=== PATIENT | female | born 1965 | race Caucasian/White ===

== ENCOUNTER 2017-03-13 18:25 | Emergency (ER) | payer SELFPAY ==
[~2017-03-13] VITALS: Ht 170.2 cm; Wt 90.5 kg
[2017-03-13 18:27] VITALS: BP 190/85; PULSE 75; RESP 20; TEMP 97.4; O2SAT 97
--- NOTE | 2017-03-13 18:52 | PD ---
Physical Exam Time Seen by Provider: 18:49 Narrative 52 year old female presents to ED for evaluation of BLE pain, L greater than R for more than one week. No recollection of injury. Pt has history of DVT two years ago and this is what she is concerned about. Pt begins in L hip and radiates down her leg. On the right begins in her hip and stops at her buttock. No fever or chills. Seems like movement helps to alleviate some of the pain. No other signficant medical history. Data Data Last Documented VS Vital Signs Date Time Temp Pulse Resp B/P Pulse Ox O2 Delivery O2 Flow Rate FiO2 03/13/17 18:27 97.4 75 20 190/85 97 Room Air [facility] Medical Record Reviewed: Yes Supervised Visit with LINA: No Narrative Course 52 year old female presents to ED for evaluation of BLE pain. Appears without distress. Bp is elevated, but otherwise VSS. Condition: Stable Serene Gill Mar 13, 2017 18:52
--- NOTE | 2017-03-13 19:58 | PD ---
HPI Chief Complaint: Pain: Acute or Chronic Time Seen by Provider: 19:32 Travel History International Travel<30 days: No Contact w/Intl Traveler<30days: No Traveled to known affect area: No History of Present Illness HPI 52-year-old female arrives complaining of bilateral leg pain for about 1 week. On the left side radiates in the region of the buttocks to the left foot posteriorly and laterally. Pain radiates from the right buttock to R thigh laterally. She reports a history of DVT years prior. She took anticoagulant and it resolved. She denies trauma recently. She has no chest pain or shortness of breath. She has not seen swelling. PFSH Social History Tobacco Use: Yes Allergies-Medications (Allergen,Severity, Reaction): Coded Allergies: Aspirin (Verified Allergy, Severe, Hives, 03/13/17) Ibuprofen (Verified Allergy, Severe, Hives, 03/13/17) Reported Meds & Prescriptions Reported Meds & Active Scripts Active Tramadol (Tramadol HCl) 50 Mg Tab 50 Mg PO Q8H PRN Review of Systems Except as stated in HPI: all other systems reviewed are Neg General / Constitutional: No: Fever, Chills Cardiovascular: No: Chest Pain or Discomfort Musculoskeletal: No: Edema Physical Exam Narrative GENERAL: 52-year-old female pleasant well-nourished well-developed SKIN: Focused skin assessment warm/dry. HEAD: Atraumatic. Normocephalic. EYES: Pupils equal and round. No scleral icterus. No injection or drainage. ENT: No nasal bleeding or discharge. Mucous membranes pink and moist. NECK: Trachea midline. No JVD. CARDIOVASCULAR: Regular rate and rhythm. No murmur appreciated. RESPIRATORY: No accessory muscle use. Clear to auscultation. Breath sounds equal bilaterally. GASTROINTESTINAL: Abdomen soft, non-tender, nondistended. Hepatic and splenic margins not palpable. MUSCULOSKELETAL: No obvious deformities. No clubbing. No cyanosis. No edema. NEUROLOGICAL: Awake and alert. No obvious cranial nerve deficits. Motor grossly within normal limits. Normal speech. PSYCHIATRIC: Appropriate mood and affect; insight and judgment normal. Data Data Last Documented VS Vital Signs Date Time Temp Pulse Resp B/P Pulse Ox O2 Delivery O2 Flow Rate FiO2 03/13/17 18:27 97.4 75 20 190/85 97 Room Air Vital signs reviewed Orders Us Leg Venous Doppler Bilat (03/13/17 ) Acetamin-Hydrocod 325-5 Mg ([place] 5-325 (03/13/17 20:00) MDM Medical Decision Making Medical Screen Exam Complete: Yes Emergency Medical Condition: Yes Medical Record Reviewed: Yes Differential Diagnosis DVT, sciatica, chronic pain, electrolyte imbalance Narrative Course Ultrasound study is negative. Sciatica as a consideration. Patient ready for discharge. Return precautions discussed Diagnosis Primary Impression: Leg pain Qualified Code: M79.604 - Pain in both lower extremities Referrals: Primary Care Physician 2 days Additional Instructions: You have a choice when it comes to health care, and we are glad that you chose [facility]. Hopefully, we have met your expectations on today's visit. You are welcome to return to [facility] at any time, as we are committed to meeting the health care needs of our community. Med/Other Pt SpecificInfo: Prescription(s) given Scripts Tramadol 50 Mg Tab50 Mg PO Q8H PRN (PAIN SCALE 6 TO 10) #20 TAB Ref 0 Prov:Reece Mckeon MD 03/13/17 Disposition: 01 DISCHARGE HOME Condition: Stable Reece Mckeon MD Mar 13, 2017 19:58
[2017-03-13] MEDS ORDERED: ACETAMINOPHEN/HYDROcodone 325 MG/5 MG TAB PO ONE (20:00)
--- NOTE | 2017-03-13 21:41 | RADRPT ---
EXAM DATE/TIME: 03/13/2017 20:46 [facility] COMPARISON: No previous studies available for comparison. INDICATIONS : Bilateral leg pain. MEDICAL HISTORY : Deep venous thrombosis. SURGICAL HISTORY : Incision and drainage to right ankle with skin graft. ENCOUNTER: Initial ACUITY: 1 week PAIN SCORE: 6/10 LOCATION: Bilateral legs. TECHNIQUE: Venous ultrasound of the left and right leg was performed from the inguinal ligament to the proximal calf. Real-time, color Doppler and spectral tracing, compression and augmentation techniques were us ed. FINDINGS: RIGHT LEG: There is normal compressibility of the deep venous system from the inguinal region to the proximal ca lf. No echogenic clot is seen in the lumen of the common femoral, femoral, popliteal, and posterior tibial veins. There is a normal response of the venous system to proximal and distal augmentation an d respiration. LEFT LEG: There is normal compressibility of the deep venous system from the inguinal region to the proximal ca lf. No echogenic clot is seen in the lumen of the common femoral, femoral, popliteal, and posterior tibial veins. There is a normal response of the venous system to proximal and distal augmentation an d respiration. CONCLUSION: No DVT of either lower extremity. Cameron Holt MD on March 13, 2017 at 21:40 Board Certified Radiologist. This report was verified electronically.
[2017-03-13] MEDS ORDERED: TRAM50TA PO (21:59)
== END 2017-03-13 22:06 | disposition home or self-care (01) ==
LOC: NEPD 18:25
DX: M79.605 Pain in left leg (principal); M79.604 Pain in right leg; Z72.0 Tobacco use; Z86.718 Personal history of other venous thrombosis and embolism
CPT/HCPCS: 93970